=== PATIENT | female | born 1960 | race Hispanic/Latino ===

== ENCOUNTER 2025-02-19 11:33 | Emergency (ER) | payer OTHER ==
[2025-02-19 13:01] LABS: #Basophils 0.03 10x3/uL (0.0-0.2); #Eosinophils 0.35 10x3/uL (0.0-0.5); #Monocytes 0.50 10x3/uL (0.0-1.1); #Neutrophils 3.50 10x3/uL (1.5-8.4); %Basophils 0.5 % (0.0-2.0); %Eosinophils 6.4 % (0.0-6.0); %Lymphocytes 19.9 % (18.0-47.0); %Monocytes 9.1 % (0.0-10.0); %Neutrophils 63.9 % (40.0-75.0); Hematocrit 33.3 % (34.9-44.5); Hemoglobin 10.8 g/dL (12.0-15.5); Mean Corpuscular Hemoglobin 29.0 pg (27.0-33.0); Mean Corpuscular Volume 89.5 fL (81.6-98.3); Platelet Count 516 10x3/uL (150-450); Red Blood Cell (RBC) Count 3.72 10x6/uL (3.90-5.03); White Blood Cell (WBC) Count 5.48 10x3/uL (3.5-10.5)
[2025-02-19 13:13] LABS: ALT (SGPT) 28 U/L (Less than 34); AST (SGOT) 46 U/L (11-34); Albumin 2.1 g/dL (3.1-4.5); Alkaline Phosphatase 62 U/L (40-110); Anion Gap 12 mmol/L (10-20); BUN (Urea Nitrogen) 17 mg/dL (9.8-20.1); Bilirubin, Total 0.3 mg/dL (0.3-1.2); Calc. Creatinine Clearance 0 mL/min (70-130); Calcium 8.6 mg/dL (7.8-10.44); Carbon Dioxide 33 mmol/L (23-31); Chloride 100 mmol/L (98-107); Globulin 3.5 g/dL (2.4-3.5); Glucose 122 mg/dL (80-115); Magnesium 2.0 mg/dL (1.6-2.6); Potassium 3.1 mmol/L (3.5-5.1); Sodium 142 mmol/L (136-145)
[2025-02-19 14:26] LABS: Glucose, Urine (Dipstick) Normal (Negative); Leukocyte 100 (Negative); Protein, Urine (Dipstick) 15 mg/dl (Neg-Trace); Specific Gravity, Urine 1.010 (1.005-1.030)
[2025-02-19 14:39] LABS: CAUTI Indications for Culture Pelvic or flank pain; RBC/HPF 0-3 HPF (0-3); WBC/HPF 21-50 HPF (0-3)
[2025-02-19 14:40] LABS: Bacteria/HPF 3+ HPF (None Seen)
[2025-02-19 14:41] LABS: Urine Culture Reflex Yes Yes
[2025-02-19] MEDS ORDERED: cefTRIAXone (ROCEPHIN) 1 GM VIAL ONE (15:14)
== END 2025-02-19 19:58 | disposition short-term general hospital (02) ==
LOC: CSHERS 11:33
DX: K94.00 Colostomy complication, unspecified (principal); E87.6 Hypokalemia; N39.0 Urinary tract infection, site not specified
CPT/HCPCS: 36415; 80053; 81001; 83735; 84100; 85025; 87077; 87086; 87186; 96374; J0696